=== PATIENT | male | born 1955 | race Caucasian/White ===

== ENCOUNTER → 2021-11-05 | Outpatient (CLI) | payer MEDICARE, OTHER ==
--- NOTE | 2021-11-05 16:22 | XR ---
Lumbar spine, thoracic spine HISTORY: Back pain 3 views the lumbar spine, 3 views of the thoracic spine submitted Lumbar spine shows anterolisthesis grade 1 L4-5, retrolisthesis grade 1 L2-3. Lumbar vertebral bodies show preserved height and bone mineralization. Lordosis is present posterior elements lumbar spine. Loss of disc height present L1-2 and L2-3 and L3-4. There is multilevel spondylosis. IMPRESSION: Degenerative disc disease Thoracic spine: Multilevel spondylosis is present. Thoracic vertebral bodies show preserved height an d alignment. Bone mineralization thought to be maintained. Is multilevel spondylosis. Loss of disc he ight present at intervertebral levels the midthoracic spine. IMPRESSION: Degenerative disc disease.
== END | disposition home or self-care (01) ==
LOC: RADXRMAIN 15:04
PROVIDERS: ATTEND Internal Medicine Geriatric Medicine
DX: M47.816 Spondylosis without myelopathy or radiculopathy, lumbar region (principal); M51.26 Other intervertebral disc displacement, lumbar region
CPT/HCPCS: 72072; 72100

== ENCOUNTER → 2021-11-07 | Outpatient (CLI) | payer MEDICARE, OTHER ==
--- NOTE | 2021-11-07 11:26 | US ---
EXAMINATION TYPE: US abdomen complete DATE OF EXAM: 11/07/2021 COMPARISON: NONE CLINICAL HISTORY: R10.84 GENERALIZED ABDOMINAL PAIN. Intermittent abdomen pain x 1 year, gotten worse recently TECHNIQUE: Multiple sonographic images of the abdomen are obtained. FINDINGS: EXAM MEASUREMENTS: Liver Length: 12.8 cm Gallbladder Wall: 0.1 cm CBD: 0.3 cm Spleen: 9.8 cm Right Kidney: 11.5 x 5.0 x 4.9 cm Left Kidney: 10.2 x 5.7 x 4.5 cm Pancreas: visualized portions wnl, limited by overlying midline bowel gas Liver: scanned intercostally, visualized portions wnl Gallbladder: wnl Evidence for sonographic Nelson's sign: no CBD: visualized portions wnl, limited by overlying bowel gas Spleen: visualized portions wnl, limited by overlying bowel gas Right Kidney: wnl Left Kidney: wnl Upper IVC: wnl Abd Aorta: wnl The liver is homogenous. The intrahepatic portion of the IVC and proximal abdominal aorta are within normal limits. There is no evidence of cholelithiasis. Common bile duct is unremarkable. The visu alized portions of the pancreas are homogenous. The spleen is unremarkable. Kidneys are symmetric a nd free of hydronephrosis. No renal lesions are seen. IMPRESSION: No significant abnormality appreciated.
== END | disposition home or self-care (01) ==
LOC: RADUSWWP 10:44
PROVIDERS: ATTEND Internal Medicine Geriatric Medicine
DX: R10.84 Generalized abdominal pain (principal)
CPT/HCPCS: 76700

== ENCOUNTER → 2022-11-28 | Outpatient (CLI) | payer MEDICARE, OTHER ==
--- NOTE | 2022-11-28 19:31 | CA ---
Transthoracic Echo Report Name: Justin Harrison Age: 66 Gender: M : 1955 Exam Date: 11/28/2022 09:45 Exam Location: [facility] Ht (in): 68 Wt (lb): 178 Ordering Physician: Tl Nam MD Attending/Referring Phys: Experimental Electronics Developer Tasha Arzate RDCS Procedure CPT: Indications: I20.9 Angina Cardiac Hx: bicuspid AOV Technical Quality: Good Contrast 1: N/A Total Dose (mL): Contrast 2: Total Dose (mL): MEASUREMENTS (Male / Female) Normal Values 2D ECHO LV Diastolic Diameter PLAX 4.8 cm 4.2 - 5.9 / 3.9 - 5.3 cm LV Systolic Diameter PLAX 3.3 cm IVS Diastolic Thickness 1.3 cm 0.6 - 1.0 / 0.6 - 0.9 cm LVPW Diastolic Thickness 1.3 cm 0.6 - 1.0 / 0.6 - 0.9 cm LV Relative Wall Thickness 0.5 RV Internal Dim ED PLAX 3.5 cm LVOT Diameter 2.2 cm LA Systolic Diameter LX 3.6 cm 3.0 - 4.0 / 2.7 - 3.8 cm LV Diastolic Volume MOD BP 118.3 cm??? 67 - 155 / 56 - 104 cm??? LV Systolic Volume MOD BP 55.6 cm??? - 58 / 19 - 49 cm??? LV Ejection Fraction MOD BP 53.0 % >= 55 % LV Cardiac Index MOD BP 1676.6 cm???/min???m??? LV Diastolic Volume MOD 4C 121.0 cm??? LV Systolic Volume MOD 4C 46.9 cm??? LV Ejection Fraction MOD 4C 61.3 % LV Cardiac Index MOD 4C 1981.7 cm???/min???m??? LV Diastolic Length 4C 9.2 cm LV Systolic Length 4C 6.9 cm LV Diastolic Volume MOD 2C 101.2 cm??? LV Systolic Volume MOD 2C 61.9 cm??? LV Ejection Fraction MOD 2C 38.8 % LV Cardiac Index MOD 2C 1049.8 cm???/min???m??? LV Diastolic Length 2C 7.9 cm LV Systolic Length 2C 7.6 cm LA Volume 59.6 cm??? 18 - 58 / 22 - 52 cm??? LA Volume Index 30.0 cm???/m??? 16 - 28 cm???/m??? M-MODE Aortic Root Diameter MM 3.4 cm MV E Point Septal Separation 0.8 cm AV Cusp Separation MM 1.6 cm DOPPLER AV Peak Velocity 583.3 cm/s AV Peak Gradient 136.1 mmHg AV Mean Velocity 444.2 cm/s AV Mean Gradient 86.3 mmHg AV Velocity Time Integral 149.5 cm AI Peak Velocity 452.0 cm/s AI Peak Gradient 81.7 mmHg AI Pressure Half Time 878.8 ms LVOT Peak Velocity 93.3 cm/s LVOT Peak Gradient 3.5 mmHg AV Area Cont Eq pk 0.6 cm??? MV Area PHT 2.2 cm??? Mitral E Point Velocity 58.4 cm/s Mitral A Point Velocity 90.1 cm/s Mitral E to A Ratio 0.6 MV Deceleration Time 348.2 ms MV E' Velocity 6.6 cm/s Mitral E to MV E' Ratio 8.8 TR Peak Velocity 215.5 cm/s TR Peak Gradient 18.6 mmHg Right Ventricular Systolic Press 23.6 mmHg FINDINGS Left Ventricle Left ventricular ejection fraction is estimated at 55-60 %. Left ventricular cavity size normal. Mild concentric left ventricular hypertrophy. Right Ventricle Mild right ventricular dilatation. Mild right ventricular dilatation. Right ventricular systolic pressure within normal limits. Right Atrium Normal right atrial size. Left Atrium Normal left atrial size. Mitral Valve Mitral valve thickened. No mitral stenosis, regurgitation or prolapse. Aortic Valve Moderate aortic valve sclerosis. Severe aortic stenosis with a peak velocity of 4.52 m/s, peak gradient 136 mmHg, mean gradient 86 mmHg, and estimated aortic valve area of .6 cm???. Possible bicuspid AOV Tricuspid Valve Structurally normal tricuspid valve. Mild tricuspid regurgitation. Pulmonic Valve Structurally normal pulmonic valve. No pulmonic regurgitation. Pericardium No pericardial effusion. Aorta Normal size aortic root and proximal ascending aorta. CONCLUSIONS LVH with preserved systolic function Severe calcific aortic stenosis likely underlying bicuspid aortic valve Aortic root appears to be of normal size Previewed by: Dr. Rito Leyva MD (Electronically Signed) Final Date: 28 November 2022 19:31
== END | disposition home or self-care (01) ==
LOC: RADNMMAIN 08:49
PROVIDERS: ATTEND Internal Medicine Geriatric Medicine
DX: I20.9 Angina pectoris, unspecified (principal); I35.0 Nonrheumatic aortic (valve) stenosis
CPT/HCPCS: 93306

== ENCOUNTER 2022-12-09 07:58 | Day surgery (SDC) | payer MEDICARE, OTHER ==
[~2022-12-09 07:58] MED LIST: ALPRAZolam 0.25 MG TAB PO PRN; ALPRAZolam 0.5 MG TAB PO PRN; ASPIRIN 325 MG TAB PO STA; HEPARIN SODIUM,PORCINE (1 ML) 2,500 UNIT in SODIUM CHLORIDE 0.9% 250 ML IRRIGATION PRN; HEPARIN SODIUM,PORCINE 10,000 UNIT in SODIUM CHLORIDE 0.9% 1,000 ML IRRIGATION PRN; NITROGLYCERIN SL TABS 0.4 MG TAB SUBLINGUAL PRN; SODIUM CHLORIDE 0.9% 1,000 ML in EMPTY BAG 1 BAG IV SCH
[2022-12-09] MEDS ORDERED: SODIUM CHLORIDE 0.9% 1,000 ML IV ONE (08:09)
[2022-12-09 08:28] VITALS: RESP 16; TEMP 97.6
[2022-12-09 08:46] LABS: Basophils # (A) 0.1 k/uL (0-0.2); Basophils % (A) 1 %; Eosinophils # (A) 0.3 k/uL (0-0.7); Eosinophils % (A) 5 %; HCT 43.5 % (39.0-53.0); HGB 15.1 gm/dL (13.0-17.5); Lymphocytes # (A) 2.5 k/uL (1.0-4.8); Lymphocytes % (A) 43 %; MCH 32.2 pg (25.0-35.0); MCHC 34.7 g/dL (31.0-37.0); MCV 92.7 fL (80.0-100.0); Mean Platelet Volume 8.3; Monocytes # (A) 0.5 k/uL (0-1.0); Monocytes % (A) 8 %; Neutrophils # (A) 2.3 k/uL (1.3-7.7); Neutrophils % (A) 40 %; Platelet Count 201 k/uL (150-450); RBC 4.69 m/uL (4.30-5.90); RDW 12.4 % (11.5-15.5); WBC 5.8 k/uL (3.8-10.6)
[2022-12-09] MEDS ORDERED: VERAPAMIL 2.5 MG/ML 2 ML AMP ONE (08:49)
[2022-12-09 08:52] LABS: African American GFR (CKD) >90 (>60 ml/min/1.73 sqM); Anion Gap 9 mmol/L; Blood Urea Nitrogen 18 mg/dL (9-20); Calcium 9.5 mg/dL (8.4-10.2); Carbon Dioxide 29 mmol/L (22-30); Chloride 102 mmol/L (98-107); Glucose 93 mg/dL (74-99); Non-African American GFR(CKD) 86 (>60 ml/min/1.73 sqM); Potassium 4.8 mmol/L (3.5-5.1); Sodium 140 mmol/L (137-145)
[2022-12-09] MEDS ORDERED: IV FLUID CONTINUATION 800 ML IV ONE (08:59)
[2022-12-09] MEDS ORDERED: fentaNYL (PF) 50 MCG/ML 2 ML AMP ONE (09:07)
[2022-12-09] MEDS ORDERED: HEPARIN SODIUM 1,000 UN/ML (10ML VL) ONE (09:07)
[2022-12-09] MEDS: BENZOCAINE SPRAY 1 CAN TOPICAL ONE ×2 (09:13→09:21)
[2022-12-09] MEDS ORDERED: MIDAZOLAM 2 MG/2 ML VIAL IVP ONE (09:21)
[2022-12-09] MEDS ORDERED: fentaNYL (PF) 50 MCG/ML 2 ML AMP IVP ONE (09:21)
[2022-12-09] MEDS ORDERED: LIDOCAINE 1% INJ 10MG/ML (20 ML MDV) SQ ONE ×2 (09:35→09:36)
--- NOTE | 2022-12-09 09:35 | P.PCN ---
Date of Procedure: 12/09/22 Operative Findings: TRANSESOPHAGEAL ECHOCARDIOGRAM ENVIRONMENTAL HEALTH AND SAFETY LEADER: JAVIER CEJA MD, RPVI INDICATION: Aortic stenosis SEDATION: Conscious sedation COMPLICATION: None LEVEL OF SEDATION Moderate to sedation length of 18 minutes PROCEDURE DESCRIPTION: After obtaining an informed consent, the patient was brought to transesophageal echocardiogram room. Pulse oximetry and heart monitors were attached to the patient. The patient throat was sprayed using lidocaine. The patient was turned into left lateral position. After that a bite guard was placed. After an appropriate conscious sedation was initiated, the transesophageal echocardiogram was advanced through a bite guard into the mid esophagus. A 2-D echocardiogram images, color Doppler images, continuous wave images, pulse-wave images, of various cardiac structure were performed. After that the transesophageal echocardiogram probe was advanced into the stomach and fixed to obtain transgastric view was. The probe was brought into the mid esophagus. Inter-atrial septum was interrogated using 2D images, color Doppler images, and then contrast study. After that transesophageal echocardiogram was withdrawn out and upon withdrawing the descending thoracic aorta all the way up to the arch was evaluated. FINDING: The left ventricular dimension and systolic function appeared to be within normal limits. The ejection fraction appears to be in the range of 55-60% with mild concentric left ventricular hypertrophy. The right ventricle appeared to be of normal size and function. The left atrial appendage appeared to be free from any thrombus. The aortic valve appears to be bicuspid valve with fusion of the right and left coronary cusps and evidence of severe aortic stenosis with a mean gradient of 41 mmHg and peak gradient of 75 mmHg. The mitral valve appeared to be mildly thickened with [id number] mitral regurgitation. There is [id number] tricuspid regurgitation was identified. The aortic root appears to be slightly dilated and measured 3.4 cm but that could be under estimated. Computed tomography scan would be preferable for further clarification of the aortic root. The interatrial septum appears to be intact. CONCLUSION: 1. Bicuspid aortic valve with fusion of the right and left coronary cusp and evidence of severe aortic stenosis with a mean gradient of 41 mmHg 2. Mildly dilated aortic root. It was measured 3.4 cm. The measurement could be underestimated. Computed tomography scan is preferable for confirmation 3. Mildly thickened mitral valve leaflets with [id number] mitral regurgitation 4. [id number] tricuspid regurgitation 5. Normal left ventricular dimension and systolic function. Mild concentric left ventricular hypertrophy 6. No evidence of pericardial effusion identified
[2022-12-09] MEDS ORDERED: VERAPAMIL SYRINGE (5 MG/10 ML) INTRAARTER ONE (09:36)
[2022-12-09] MEDS ORDERED: HEPARIN SODIUM 1,000 UN/ML (10ML VL) IV ONE (09:41)
[2022-12-09] MEDS ORDERED: IOPAMIDOL-370 100ML BTL INJ ONE (09:52)
[2022-12-09] MEDS ORDERED: RX INFO: IV CONTRAST WAS GIVEN 1 EACH MISC MISCELLANE PRN (09:53)
[2022-12-09] MEDS ORDERED: SODIUM CHLORIDE 0.9% 1,000 ML IV SCH (10:00)
--- NOTE | 2022-12-09 10:00 | P.PCN ---
Date of Procedure: 12/09/22 Operative Findings: CARDIAC CATHETERIZATION PERFORMING PHYSICIAN: Hi Zuniga MD, RPVI PROCEDURE PERFORMED: 1. Selective right and left coronary angiogram 2. Left heart catheterization 3. Ultrasound-guided access of the right radial artery INDICATION: Severe aortic stenosis COMPLICATION: None APPROACH: Right radial artery LEVEL OF SEDATION: Moderate with a sedation length of 29 minutes PROCEDURE DESCRIPTION: After obtaining an informed consent, the patient was brought to cardiac shellfish processing laborer. Local anesthesia was performed using lidocaine subcutaneously. The right radial artery was cannulated using Seldinger technique, the guidewire passed easily, following that we advanced a 5-Tanzanian sheath dilator assembly, the wire and dilator were removed and sheath was flushed. Following that, 2 mg of verapamil along with 5000 unit heparin were given. Selective right and left coronary angiogram using a 6-Tanzanian JR4 and JL 3.5 catheters. Following that we did left heart catheterization using 6-Tanzanian JR4 catheter which across aortic valve then I did pulled back across the valve The procedure was completed there was no complication. SELECTIVE CORONARY ANGIOGRAM: The right coronary artery: Medium caliber vessel nondominant vessel. The RCA appears to be angiographically normal Left main: Short left main almost nonexistent. The left circumflex: Large caliber vessel and a dominant vessel. The LCx system is angiographically normal. Gives rises into the first obtuse marginal branch which is a large caliber vessel seems to be angiographically normal. Second obtuse marginal branch is a medium caliber vessel appears to be angiographically normal. The circumflex distally bifurcates into PDA and PLV branches both appeared to be angiographically normal. The left anterior descending artery: Large caliber vessel. The LAD appeared to be angiographically normal and reached the apex. Gives rise into a large diagonal branch which appears to be angiographically normal HEMODYNAMICS: LVEDP was 12 mmHg with significant gradient across aortic valve. The peak gradient was 88 mmHg and mean gradient of 78 mmHg CONCLUSION: 1. Normal coronary angiogram 2. Severe aortic stenosis as described above POSTPROCEDURE MANAGEMENT: Aortic valve replacement to be performed in the next few days.
[2022-12-09 15:01] VITALS: BP 128/72; PULSE 58
--- NOTE | 2022-12-26 12:20 | ECHOT ---
TRANSESOPHAGEAL ECHOCARDIOGRAM WAREHOUSE REPRESENTATIVE: JAVIER CEJA MD, RPVI INDICATION: Aortic stenosis SEDATION: Conscious sedation COMPLICATION: None LEVEL OF SEDATION Moderate to sedation length of 18 minutes PROCEDURE DESCRIPTION: After obtaining an informed consent, the patient was brought to transesophageal echocardiogram room. Pulse oximetry and heart monitors were attached to the patient. The patient throat was sprayed using lidocaine. The patient was turned into left lateral position. After that a bite guard was placed. After an appropriate conscious sedation was initiated, the transesophageal echocardiogram was advanced through a bite guard into the mid esophagus. A 2-D echocardiogram images, color Doppler images, continuous wave images, pulse-wave images, of various cardiac structure were performed. After that the transesophageal echocardiogram probe was advanced into the stomach and fixed to obtain transgastric view was. The probe was brought into the mid esophagus. Inter-atrial septum was interrogated using 2D images, color Doppler images, and then contrast study. After that transesophageal echocardiogram was withdrawn out and upon withdrawing the descending thoracic aorta all the way up to the arch was evaluated. FINDING: The left ventricular dimension and systolic function appeared to be within normal limits. The ejection fraction appears to be in the range of 55-60% with mild concentric left ventricular hypertrophy. The right ventricle appeared to be of normal size and function. The left atrial appendage appeared to be free from any thrombus. The aortic valve appears to be bicuspid valve with fusion of the right and left coronary cusps and evidence of severe aortic stenosis with a mean gradient of 41 mmHg and peak gradient of 75 mmHg. The mitral valve appeared to be mildly thickened with [id number] mitral regurgitation. There is [id number] tricuspid regurgitation was identified. The aortic root appears to be slightly dilated and measured 3.4 cm but that could be under estimated. Computed tomography scan would be preferable for further clarification of the aortic root. The interatrial septum appears to be intact. CONCLUSION: 1. Bicuspid aortic valve with fusion of the right and left coronary cusp and evidence of severe aortic stenosis with a mean gradient of 41 mmHg 2. Mildly dilated aortic root. It was measured 3.4 cm. The measurement could be underestimated. Computed tomography scan is preferable for confirmation 3. Mildly thickened mitral valve leaflets with [id number] mitral regurgitation 4. Zxsj-mj-zyotgdwr tricuspid regurgitation 5. Normal left ventricular dimension and systolic function. Mild concentric left ventricular hypertrophy 6. No evidence of pericardial effusion identified Additional CC's: Tl ROBERTSON
== END 2022-12-09 13:54 | disposition home or self-care (01) ==
LOC: CATHCVL 07:58
PROVIDERS: ATTEND Internal Medicine Interventional Cardiology
DX: I08.3 Combined rheumatic disorders of mitral, aortic and tricuspid valves (principal); Z95.2 Presence of prosthetic heart valve
CPT/HCPCS: 99152; 99153; 93312; 93320; 93325; 93458; 80048; 85025; C1769; C1894; J2250; J2001; J3010; J1644; Q9967